=== PATIENT | female | born 1940 | race African-American/Black ===

== ENCOUNTER 2024-05-13 18:19 | Emergency (ER) | payer BC, MEDICARE ==
[~2024-05-13] VITALS: Ht 167.6 cm; Wt 74.0 kg
[2024-05-13 18:20] VITALS: O2SAT 96
[2024-05-13 18:24] VITALS: BP 181/75; PULSE 64; RESP 18; TEMP 36.5; O2SAT 98
== END 2024-05-13 20:06 | disposition home or self-care (01) ==
LOC: ER 18:19
DX: R09.A2 Foreign body sensation, throat (principal); E04.1 Nontoxic single thyroid nodule; I10 Essential (primary) hypertension
CPT/HCPCS: 70490; 71250; 99284